=== PATIENT | female | born 1955 | race Caucasian/White ===

== ENCOUNTER → 2017-08-17 | Outpatient (CLI) | payer OTHER ==
[~2017-08-17] MED LIST: BUTA-303 PO; ESC10 PO; ESTR-26 PO; MULTI VITAMIN PO; OSTEO BIFLEX PO
--- NOTE | 2017-08-18 11:05 | RADIOLOGY IMAGING REPORT ---
FACILITY: [facility] [place] PATIENT NAME: YENNY LO : [id number] MR: [id number]: [id number] EXAM DATE: [id number] ORDERING PHYSICIAN: JOHN PHILLIPS TECHNOLOGIST: Diamond Morales PROCEDURE:BILATERAL DIGITAL SCREENING MAMMOGRAM WITH CAD ASSISTED INTERPRETATION & 3D TOMOSYNTHESIS COMPARISON:Prior mammograms 07/16/16, 04/27/15 INDICATIONS:SCREENING FINDINGS: The breast tissue demonstrates scattered fibroglandular densities. There is no dominant mass, suspicious cluster of calcifications or persistent areas of architectural distortion. Small benign axillary lymph nodes are stable. DIAGNOSTIC CATEGORY 1--NEGATIVE. RECOMMENDATIONS: ROUTINE MAMMOGRAM AND CLINICAL EVALUATION. IMPRESSION: BIRADS 1: Negative Recommend the patient resumes screening mammography in 1 year. Dictated by: Francois Mckeon M.D. on 08/18/2017 at 8:18 Transcribed by: ANN on 08/18/2017 at 10:08 Approved by: Francois Mckeon M.D. on 08/18/2017 at 11:04 [facility]
== END ==
LOC: MAMO 00:47
PROVIDERS: ATTEND Obstetrics & Gynecology
DX: Z12.31 Encounter for screening mammogram for malignant neoplasm of breast (principal)
CPT/HCPCS: 77063; 77067

== ENCOUNTER → 2018-09-14 | Outpatient (CLI) | payer OTHER ==
--- NOTE | 2018-09-16 08:24 | RADIOLOGY IMAGING REPORT ---
FACILITY: [facility] - [place] PATIENT NAME: YENNY LO : [id number] MR: [id number] V: [id number] EXAM DATE: ORDERING PHYSICIAN: BERNARD ALEXANDRA TECHNOLOGIST: Diamond Morales PROCEDURE:BILATERAL DIGITAL SCREENING MAMMOGRAM WITH CAD ASSISTED INTERPRETATION & 3D TOMOSYNTHESIS COMPARISON:Prior mammograms 08/17/17, 07/16/16, 05/07/15, 04/27/15, 05/20/13, 05/24/12. INDICATIONS:screening FINDINGS: The breasts are heterogeneously dense which can obscure small masses. The parenchymal pattern has remained stable allowing for difference in mammographic technique & patient positioning. DIAGNOSTIC CATEGORY 1--NEGATIVE. RECOMMENDATIONS: ROUTINE MAMMOGRAM AND CLINICAL EVALUATION. IMPRESSION: BIRADS 1: Negative. No significant abnormality is seen. Dictated by: Tabitha Villasenor M.D. on 09/14/2018 at 16:30 Transcribed by: ANN on 09/15/2018 at 9:22 Approved by: Tabitha Villasenor M.D. on 09/16/2018 at 8:23 [facility]
== END ==
LOC: MAMO 01:18
PROVIDERS: ATTEND Physician Assistant
DX: Z12.31 Encounter for screening mammogram for malignant neoplasm of breast (principal)
CPT/HCPCS: 77063; 77067